=== PATIENT | female | born 2000 | race American Indian/Alaskan Native ===

== ENCOUNTER 2020-08-22 08:54 | Emergency (ER) | payer SELFPAY ==
[2020-08-22] MEDS ORDERED: ONDANSETRON 4 MG/2 ML INJ IV ONE (09:15)
[2020-08-22] MEDS ORDERED: SODIUM CHLORIDE 0.9% 1000 ML 1,000 ML IV ONE (09:15)
--- NOTE | 2020-08-22 09:17 | Emergency Department Report ---
ED HPI - General Chief complaint: Nausea/Vomiting/Diarrhea Stated complaint: 6WKS 4 DAYS CANT KEEP FOOD DOWN Time Seen by Provider: 08/22/20 09:05 Source: patient Mode of arrival: Ambulatory Limitations: No Limitations - History of Present Illness Initial comments: There is a pleasant 20-year-old female G1, P0 who presents the emergency depart ment approximately 6 weeks with a chief complaint of nausea, vomiting, lower abdominal cramping over the past 4 days. She denies any vaginal bleeding, hematemesis, melena, hematochezia, fever, chills, night sweats, headache, dizziness, blurry vision, shortness of breath, or any other associated symptoms. - Related Data Previous Rx's Medication Instructions Recorded Last Taken Type Nitrofurantoin [place]/M-Cryst 100 mg PO Q12HR #14 capsule 08/22/20 Unknown Rx [Macrobid CAP] Promethazine [Phenergan] 25 mg PO Q6HR PRN #30 tab 08/22/20 Unknown Rx Allergies Allergy/AdvReac Type Severity Reaction Status Date / Time No Known Allergies Allergy Unverified 08/22/20 08:59 ED Review of Systems ROS: Stated complaint: 6WKS 4 DAYS CANT KEEP FOOD DOWN Other details as noted in HPI Comment: All other systems reviewed and negative Constitutional: denies: chills, fever Eyes: denies: eye pain, eye discharge, vision change ENT: denies: ear pain, throat pain Respiratory: denies: cough, shortness of breath, wheezing Cardiovascular: denies: palpitations Endocrine: no symptoms reported Gastrointestinal: as per HPI, abdominal pain, nausea, vomiting. denies: diarr hea Genitourinary: denies: urgency, dysuria, discharge Musculoskeletal: denies: back pain, joint swelling, arthralgia Skin: denies: rash, lesions Neurological: denies: headache, weakness, paresthesias Psychiatric: denies: anxiety, depression Hematological/Lymphatic: denies: easy bleeding, easy bruising ED Past Medical Hx - Past Medical History Previous Medical History?: No Additional medical history: IRON DEFICENY ANEMIA - Social History Smoking Status: Never Smoker Substance Use Type: None - Medications Home Medications: Home Medications Medication Instructions Recorded Confirmed Last Taken Type Nitrofurantoin [place]/M-Cryst 100 mg PO Q12HR #14 capsule 08/22/20 Unknown Rx [Macrobid CAP] Promethazine [Phenergan] 25 mg PO Q6HR PRN #30 tab 08/22/20 Unknown Rx ED Physical Exam - General Limitations: No Limitations General appearance: alert, in no apparent distress - Head Head exam: Present: atraumatic, normocephalic - Eye Eye exam: Present: normal appearance, PERRL, EOMI Pupils: Present: normal accommodation - ENT ENT exam: Present: normal exam, normal orophraynx, mucous membranes moist - Neck Neck exam: Present: normal inspection, full ROM. Absent: tenderness, meningismus - Respiratory Respiratory exam: Present: normal lung sounds bilaterally. Absent: respiratory distress, wheezes, rales, rhonchi, stridor, chest wall tenderness - Cardiovascular Cardiovascular Exam: Present: regular rate, normal rhythm, normal heart sounds. Absent: systolic murmur, diastolic murmur, rubs, gallop - GI/Abdominal GI/Abdominal exam: Present: soft, tenderness (Mild suprapubic tenderness to palpation, no rebound or guarding, negative McBurney's point tenderness, negative Alfredo sign,), normal bowel sounds. Absent: distended, guarding, rebound, rigid - Extremities Exam Extremities exam: Present: normal inspection, full ROM, normal capillary refill. Absent: tenderness, calf tenderness - Back Exam Back exam: Present: normal inspection, full ROM. Absent: tenderness, CVA tenderness (R), CVA tenderness (L) - Neurological Exam Neurological exam: Present: alert, oriented X3, normal gait - Psychiatric Psychiatric exam: Present: normal affect, normal mood - Skin Skin exam: Present: warm, dry, intact, normal color. Absent: rash ED Course Vital Signs 08/22/20 08/22/20 09:01 10:00 Temperature 98.7 F Pulse Rate 99 H Respiratory 20 16 Rate Blood Pressure 102/66 [Right] O2 Sat by Pulse 100 Oximetry - Reevaluation(s) Reevaluation #1: 08/22/20 12:06 Patient's labs returned showing hyponatremia and a suspected metabolic acidosis with a bicarb of 19 and an anion gap of 18. She is given IV fluids and felt much better. She was tolerating p.o. fluids and felt comfortable going home. I will send her home with nausea medication. Urine returned consistent with urinary tract infection and will send her home with Macrobid. Patient is comfortable with this plan will follow up with [facility] outpatient. She was instructed to return to the emergency department merely she develops any change or worsening symptoms. She verbalized understand the diagnosis, treatment plan and follow-up instructions and all her questions were answered. 08/22/20 12:07 ED Medical Decision Making - Lab Data Result diagrams: 08/22/20 09:55 08/22/20 09:55 Lab Results 08/22/20 08/22/20 08/22/20 Range/Units 09:55 09:55 09:55 WBC 8.0 (4.5-11.0) K/mm3 RBC 3.80 (3.65-5.03) M/mm3 Hgb 12.2 (10.1-14.3) gm/dl Hct 34.9 (30.3-42.9) % MCV 92 (79-97) fl MCH 32 (28-32) pg MCHC 35 H (30-34) % RDW 12.5 L (13.2-15.2) % Plt Count 340 (140-440) K/mm3 Lymph % (Auto) [employer]room Instructional Aide [place] % (Auto) Classroom Instruction[employer] Aide Eos % (Auto) [employer]room Instruction[employer] Aide Baso % (Auto) Classroom Instructional Aide Lymph # (Auto) Classroom Instructional Aide [place] # (Auto) Classroom Instructional Aide Eos # (Auto) Classroom Instructional Aide Baso # (Auto) Classroom Instructional Aide Seg Neutrophils % Classroom Instructional Aide Seg Neutrophils # Classroom Instructional Aide Sodium 128 L (137-145) mmol/L Potassium 3.7 (3.6-5.0) mmol/L Chloride 94.3 L (98-107) mmol/L Carbon Dioxide 19 L (22-30) mmol/L Anion Gap 18 mmol/L BUN 10 (7-17) mg/dL Creatinine 0.5 L (0.6-1.2) mg/dL Estimated GFR > 60 ml/min BUN/Creatinine Ratio 20 % Glucose 89 (65-100) mg/dL Calcium 10.4 H (8.4-10.2) mg/dL Total Bilirubin 0.60 (0.1-1.2) mg/dL AST 16 (5-40) units/L ALT 10 (7-56) units/L Alkaline Phosphatase 33 L (35-129) units/L Total Protein 7.3 (6.3-8.2) g/dL Albumin 4.1 (3.9-5) g/dL Albumin/Globulin Ratio 1.3 % HCG, Quant 29552 H (0-4) mIU/mL Urine Color (Yellow) Urine Turbidity (Clear) Urine pH (5.0-7.0) Ur Specific [place] (1.003-1.030) Urine Protein (Negative) mg/dL Urine Glucose (UA) (Negative) mg/dL Urine Ketones (Negative) mg/dL Urine Blood (Negative) Urine Nitrite (Negative) Urine Bilirubin (Negative) Urine Urobilinogen (<2.0) mg/dL Ur Leukocyte Esterase (Negative) Urine WBC (Auto) (0.0-6.0) /HPF Urine RBC (Auto) (0.0-6.0) /HPF U Epithel Cells (Auto) (0-13.0) /HPF Urine Mucus /HPF 08/22/20 Range/Units 10:18 WBC (4.5-11.0) K/mm3 RBC (3.65-5.03) M/mm3 Hgb (10.1-14.3) gm/dl Hct (30.3-42.9) % MCV (79-97) fl MCH (28-32) pg MCHC (30-34) % RDW (13.2-15.2) % Plt Count (140-440) K/mm3 Lymph % (Auto) [place] % (Auto) Eos % (Auto) Baso % (Auto) Lymph # (Auto) [place] # (Auto) Eos # (Auto) Baso # (Auto) Seg Neutrophils % Seg Neutrophils # Sodium (137-145) mmol/L Potassium (3.6-5.0) mmol/L Chloride (98-107) mmol/L Carbon Dioxide (22-30) mmol/L Anion Gap mmol/L BUN (7-17) mg/dL Creatinine (0.6-1.2) mg/dL Estimated GFR ml/min BUN/Creatinine Ratio % Glucose (65-100) mg/dL Calcium (8.4-10.2) mg/dL Total Bilirubin (0.1-1.2) mg/dL AST (5-40) units/L ALT (7-56) units/L Alkaline Phosphatase (35-129) units/L Total Protein (6.3-8.2) g/dL Albumin (3.9-5) g/dL Albumin/Globulin Ratio % HCG, Quant (0-4) mIU/mL Urine Color Yellow (Yellow) Urine Turbidity Slightly-cloudy (Clear) Urine pH 6.0 (5.0-7.0) Ur Specific [place] 1.027 (1.003-1.030) Urine Protein 100 mg/dl (Negative) mg/dL Urine Glucose (UA) Neg (Negative) mg/dL Urine Ketones 80 (Negative) mg/dL Urine Blood Neg (Negative) Urine Nitrite Neg (Negative) Urine Bilirubin Neg (Negative) Urine Urobilinogen 4.0 (<2.0) mg/dL Ur Leukocyte Esterase Mod (Negative) Urine WBC (Auto) 81.0 H (0.0-6.0) /HPF Urine RBC (Auto) 14.0 (0.0-6.0) /HPF U Epithel Cells (Auto) 8.0 (0-13.0) /HPF Urine Mucus 3+ /HPF - Radiology Data Radiology results: report reviewed, image reviewed Ordering Physician: DUANE TAN Date of Service: 08/22/20 Procedure(s): US OB <= 14 weeks fetus Accession Number(s): [id number] cc: DUANE TAN ULTRASOUND OBSTETRIC INDICATION / CLINICAL INFORMATION: pelvic cramping, 6 wks. Clinical Gestational Age (GA): 6.0 weeks.days TECHNIQUE: Transabdominal. COMPARISON: None available. FINDINGS: GESTATIONAL SAC: Well-defined oval shape and intrauterine in location. YOLK SAC: No significant abnormality. EMBRYO/FETUS: No significant abnormality. - Alvin-Rump Length = 10.7 mm = 7.1 weeks.days - Heart Rate, beats per minute (if present) = 120 ADNEXA: No significant abnormality. FREE FLUID: None. ADDITIONAL FINDINGS: Small subchorionic hemorrhage measures 1.9 x 0.3 cm IMPRESSION: 1. Single, living intrauterine with estimated sonographic age of 7.3 weeks.days. 2. Small subchorionic hemorrhage measures 1.9 x 0.3 cm. Signer Name: Abdukladir Billingsley MD Signed: 08/22/2020 10:05 AM Workstation Name: [id number] Transcribed By: MARILOU Dictated By: ABDULKADIR BILLINGSLEY Electronically Authenticated By: ABDULKADIR BILLINGSLEY Signed Date/Time: 08/22/20 1005 - Differential Diagnosis Hyperemesis gravidarum, enteritis, small bowel obstruction Critical care attestation.: If time is entered above; I have spent that time in minutes in the direct care of this critically ill patient, excluding procedure time. ED Disposition Clinical Impression: Hyperemesis gravidarum, Dehydration, Hyponatremia Subchorionic hematoma in first trimester Qualifiers: Fetus number: single or unspecified fetus Qualified Code(s): O41.8X10 - Other specified disorders of amniotic fluid and membranes, first trimester, not applicable or unspecified; O46.8X1 - Other antepartum hemorrhage, first trimester Disposition: DC-01 TO HOME OR SELFCARE Is pt being admited?: No Condition: Stable Instructions: Activity Restriction During , Hyperemesis Gravidarum Prescriptions: Nitrofurantoin [place]/M-Cryst [Macrobid CAP] 100 mg PO Q12HR #14 capsule Promethazine [Phenergan] 25 mg PO Q6HR PRN #30 tab PRN Reason: Nausea Referrals: PRIMARY CAREMD [Primary Care Provider] - 3-5 Days ABHI NEELY MD [Staff Physician] - 3-5 Days [facility] [Provider Group] - 3-5 Days Forms: Work/School Release Form(ED) Time of Disposition: 12:09
--- NOTE | 2020-08-22 10:09 | Ultrasound Report ---
ULTRASOUND OBSTETRIC INDICATION / CLINICAL INFORMATION: pelvic cramping, 6 wks. Clinical Gestational Age (GA): 6.0 weeks.days TECHNIQUE: Transabdominal. COMPARISON: None available. FINDINGS: GESTATIONAL SAC: Well-defined oval shape and intrauterine in location. YOLK SAC: No significant abnormality. EMBRYO/FETUS: No significant abnormality. - Cable-Rump Length = 10.7 mm = 7.1 weeks.days - Heart Rate, beats per minute (if present) = 120 ADNEXA: No significant abnormality. FREE FLUID: None. ADDITIONAL FINDINGS: Small subchorionic hemorrhage measures 1.9 x 0.3 cm IMPRESSION: 1. Single, living intrauterine with estimated sonographic age of 7.3 weeks.days. 2. Small subchorionic hemorrhage measures 1.9 x 0.3 cm. Signer Name: Abdulkadir Razo MD Signed: 08/22/2020 10:05 AM Workstation Name: [id number]
[2020-08-22 10:20] LABS: Hematocrit 34.9 % (30.3-42.9); Hemoglobin 12.2 gm/dl (10.1-14.3); Mean Corpuscular HGB Conc 35 % (30-34); Mean Corpuscular Volume 92 fl (79-97); Platelet Count 340 K/mm3 (140-440); Red Cell Distribution Width 12.5 % (13.2-15.2)
[2020-08-22 10:36] LABS: Bilirubin,Urine NEG (Negative); Blood,Urine NEG (Negative); Color,Urine Yellow (Yellow); Mucus,Urine 3+ /HPF
[2020-08-22 10:38] LABS: Alanine Aminotransferase 10 units/L (7-56); Albumin 4.1 g/dL (3.9-5); Blood Urea Nitrogen 10 mg/dL (7-17); Calcium 10.4 mg/dL (8.4-10.2); Hemolysis Index 54
[2020-08-22 10:40] LABS: BUN/Creatinine Ratio 20
[2020-08-22 13:55] VITALS: BP 99/51
== END 2020-08-22 13:56 | disposition home or self-care (01) ==
LOC: ED 08:54
DX: O21.0 Mild hyperemesis gravidarum (principal); O41.8X10 Other specified disorders of amniotic fluid and membranes, first trimester, not applicable or unspecified; O26.891 Other specified pregnancy related conditions, first trimester; E87.1 Hypo-osmolality and hyponatremia; E86.0 Dehydration; Z3A.01 Less than 8 weeks gestation of pregnancy; Z79.899 Other long term (current) drug therapy
CPT/HCPCS: 36415; 76801; 80053; 81001; 84702; 85025; 87086; 96361; 96374; 99284; J2405; J7030; 87076; 87186